=== PATIENT | male | born 1955 | race Caucasian/White ===

== ENCOUNTER → 2021-09-07 | Outpatient (CLI) | payer MEDICARE, BC ==
--- NOTE | 2021-09-07 10:12 | XR ---
EXAMINATION TYPE: XR chest 2V DATE OF EXAM: 09/07/2021 9:40 AM COMPARISON:None TECHNIQUE: XR chest 2V Frontal and lateral views of the chest. CLINICAL INDICATION:Male, 66 years old with history of Z18.10; retained metal fragments, FINDINGS: Lungs/Pleura: There is no evidence of pleural effusion, focal consolidation, or pneumothorax. Pulmonary vascularity: Unremarkable. Heart/mediastinum: Cardiomediastinal silhouette is unremarkable. Musculoskeletal: No acute osseous pathology. Midline sternotomy wires are noted and stable. Other: No radiopaque foreign bodies. IMPRESSION: No acute cardiopulmonary disease/process.
== END | disposition home or self-care (01) ==
LOC: RADXRMAIN 09:18
PROVIDERS: ATTEND Orthopaedic Surgery Hand Surgery
DX: Z18.10 Retained metal fragments, unspecified (principal)
CPT/HCPCS: 71046

== ENCOUNTER → 2021-11-07 | Outpatient (CLI) | payer MEDICARE, BC ==
[2021-11-07 17:03] LABS: Partial Thromboplastin Time 24.4 sec (22.0-30.0); Prothrombin Time 10.4 sec (9.0-12.0)
[2021-11-07 22:37] LABS: HGB 14.8 g/dL (13.0-17.0); MCHC 32.2 g/dL (32.0-37.0); MCV 90.2 fL (80.0-97.0); Mean Platelet Volume 11.6 fL (9.5-12.2); NRBC Per 100 WBC 0 /100 WBCS (0.0-0.0); Platelet Count 177 X 10*3/uL (140-440); WBC 7.17 X 10*3/uL (4.50-10.00)
[2021-11-07 22:56] LABS: Appearance,Urine Clear (Clear); Bilirubin,Urine Negative (Negative); Blood,Urine Negative (Negative); Color,Urine Yellow (Yellow); Ketones,Urine Negative (Negative); Nitrite,Urine Negative (Negative); Specific Gravity,Urine 1.019 (1.001-1.030); Urobilinogen,Urine 0.2 (0.2,1.0)
[2021-11-07 23:07] LABS: Albumin 4.7 g/dL (3.8-4.9); Albumin/Globulin Ratio 1.94 (1.60-3.17); Anion Gap 11.7 mmol/L (10.00-18.00); BUN/Creat Ratio 15.46 Ratio (12.00-20.00); Blood Urea Nitrogen 16.7 mg/dL (9.0-27.0); Carbon Dioxide 24.8 mmol/L (20.0-27.5); Globulin 2.4 g/dL (1.6-3.3); Non-African American GFR(CKD) 71.7 (60.0-200.0); Potassium 4.5 mmol/L (3.5-5.5); Total Bilirubin 0.5 mg/dL (0.30-1.20); Total Protein 7.1 g/dL (6.2-8.2)
== END | disposition home or self-care (01) ==
LOC: LABPAT 15:19
PROVIDERS: ATTEND Orthopaedic Surgery
DX: Z01.812 Encounter for preprocedural laboratory examination (principal); M16.12 Unilateral primary osteoarthritis, left hip
CPT/HCPCS: 36415; 80053; 81003; 85027; 85610; 85730; 87070

== ENCOUNTER 2021-11-19 12:22 | Day surgery (SDC) | payer MEDICARE, BC ==
[2021-11-15 14:20] VITALS: BMI 36.6
[~2021-11-19 12:22] MED LIST: ACETAMINOPHEN TAB 500 MG TAB PO PRN; GABAPENTIN 300 MG CAP PO PRN; HYDROcodone/APAP 7.5-325MG 1 EACH TAB PO PRN; HYDROmorphone 0.2 MG/1 ML SYRINGE IVP PRN; HYDROmorphone 0.5 MG/0.5 ML SYRINGE IVP PRN; LIDOCAINE 1% (10MG/ML) FOR IV START INTRADERMA PRN; MAGNESIUM HYDROXIDE 2,400 MG/10 ML CUP PO PRN; NALOXONE 0.4 MG/ML 1 ML VIAL IV PRN; ONDANSETRON 4 MG/2 ML VIAL IVP ONE; ONDANSETRON 4 MG/2 ML VIAL IVP PRN; ceFAZolin 3 GM in SODIUM CHLORIDE 0.9% 100 ML IVPB PRN
[2021-11-19 13:04] LABS: Glucose,Whole Blood 99 mg/dL (75-99)
[2021-11-19] MEDS: LACTATED RINGERS 1,000 ML IV SCH (13:15)
[2021-11-19] MEDS ORDERED: MELOXICAM 7.5 MG TAB PO ONE (13:39)
[2021-11-19] MEDS ORDERED: ROPIVACAINE 5 MG/ML 30 ML VIAL MISCELLANE ONE ×2 (14:05→15:34)
[2021-11-19] MEDS ORDERED: MIDAZOLAM 2 MG/2 ML VIAL ONE (14:15)
[2021-11-19] MEDS ORDERED: ceFAZolin 1,000 MG in SODIUM CHLORIDE 0.9% 1,000 ML IRRIGATION ONE (14:15)
[2021-11-19] MEDS ORDERED: fentaNYL (PF) 50 MCG/ML 2 ML AMP ONE (14:15)
[2021-11-19] MEDS ORDERED: TRANEXAMIC ACID IN NACL,ISO-OS 1,000 MG/100 ML BAG ONE (14:15)
[2021-11-19] MEDS ORDERED: PROPOFOL 10 MG/ML 20 ML VIAL IV ONE (14:15)
[2021-11-19] MEDS ORDERED: LACTATED RINGERS 1,000 ML IV ONE (15:40)
--- NOTE | 2021-11-19 15:43 | P.OP ---
Date of Procedure: 11/19/21 Preoperative Diagnosis: Severe osteoarthritis left hip Postoperative Diagnosis: Severe osteoarthritis left hip Procedure(s) Performed: Left total hip arthroplasty with a direct anterior approach Implants: [employer] Polarstem standard size 8 [employer] R3, 3 hole hemispherical acetabular shell, 56 mm [employer] Reflection 6.5 mm cancellus screw, 20 mm, 25 mm [employer] R3, XLPE 20 acetabular liner [employer] Oxinium femoral head 36 m, +4 All components were press-fit. The articulation is Oxinium on polyethylene. Anesthesia: spinal Surgeon: Armani Paz Aerodynamics Teacher #1: Mignon Dodd Estimated Blood Loss (ml): 250 Pathology: other (Femoral head) Condition: stable Disposition: PACU Indications for Procedure: After failure of conservative treatment we discussed the surgical and nonsurgi catrachita treatment options at length. Patient wishes to proceed with a total hip arthroplasty with a direct anterior approach. Complications specific to this procedure were discussed at length, including but not limited to infection, leg length discrepancy, dislocation, nerve injury, and fracture. Covid-19 was also discussed at length with the patient, and they are aware of the current policies and procedures. The patient was given the option of delaying surgery, but they elect to proceed knowing these risks. Patient is aware of all these complications and informed consent was obtained Operative Findings: The operative findings are consistent with severe osteoarthritis the left hip Description of Procedure: Patient was seen and evaluated in the preoperative area and the consent was reviewed. The operative site was marked with a skin marker. The patient was then brought to the operating room and given preoperative antibiotics i ntravenously. 1 g of Tranexamic acid was also given intravenously. A spinal anesthetic was administered by the anesthesia department. The patient was then placed on the [place] table with the bony prominences well-padded. The hip area was then prepped with a ChloraPrep solution and draped in the usual sterile fashion. A universal timeout was then performed, which confirmed the patient's name, s urgical site, ALLERGIES, and procedure being performed on the consent. Next the incision site was located at 1 cm distal and 2 cm lateral to the anterior superior iliac spine. The skin and subcutaneous tissues were sharply incised. Incision was carefully dissected down to the fascia overlying the tensor fascia renée muscle. This fascia was then incised in line with the incision. Care was taken to stay laterally in order to avoid injuring the lateral femoral cutaneous nerve. Next, using blunt finger dissection, the tensor fascia renée muscle was dissected off its investing fascia. The muscle was then carefully retracted laterally with a cobra retractor over the lateral neck of the femur. Next, the circumflex vessels were identified and cauterized using the AquaMantis device. The anterior hip capsule was then exposed. The capsule was then opened and an inverted T fashion. Cobra retractors were then placed intracapsularly. The retractors were maintained intracapsular throughout the procedure. The proximal femur was then visualized. Fluoroscopic x-rays were then taken in order to evaluate the preoperative leg lengths. A small amount of traction was placed on the leg. The femoral neck was then osteotomized at the appropriate level above the lesser trochanter. A small wedge of bone was then removed from the remaining femoral head. Next, using a corkscrew the femoral head was removed from the acetabulum. On gross visual inspection, the femoral head had complete loss of articular cartilage and multiple periarticular osteophytes. The femoral head was then measured. Attention was then turned to the acetabulum. The acetabulum was exposed and any remaining labrum was excised. Sequential reaming of the acetabulum was performed using fluoroscopic guidance until there was a good bed of bleeding cancellus bone. When the appropriate size was reached, a trial was then placed. The position and fit of the trial was checked with fluoroscopy. The trial was then removed. Then, using fluoroscopic guidance, the final implant was impacted at 20 of anteversion and 40 of abduction, and fully seated in the acetabulum. 2 screws were then placed in the acetabulum. Again fluoroscopy was used to check position of the screws. Next, the liner was then impacted, with a 20 elevated liner located in the anterior superior quadrant. Component locking was confirmed. Attention was then directed to the femur. With the aid of the [place] table, the femur was externally rotated to approximately 130, extended, and adducted under the opposite leg. A side hook was then placed under the proximal femur, and the side hook elevator was used to elevate the proximal femur while releasing the capsule. Retractors were then placed. A capsular release was performed, as wel l as a release of the conjoined tendon, which afforded excellent visualization of the proximal femur. Next, a box osteotome was used to lateralize the proximal femur. A smoking tobacco packing machine hand was then used to locate the femoral canal. Sequential broaching was then performed with appropriate size which afforded excellent fixation in the proximal femur. A trial was then placed with appropriate head and neck, and the hip was gently reduced with the aid of the [place] table. Fluoroscopy was then used to check position of the components, as well as to ensure equal leg lengths. The hip was then gently dislocated and the trials were then removed. Final implants were then impacted and the hip was again reduced. Final fluoroscopic x-rays confirmed that the components were in anatomic position, as well as equal leg lengths. The hip was also taken through range of motion, and found to be stable. The hip was then copiously irrigated with antibiotic solution with pulsatile lavage. The hip was then irrigated with Irrisept solution. The soft tissues were then injected with a ropivacaine solution. A second dose of 1 g of Tranexamic acid was also given intravenously. The fascia was then closed with 2-0 strata fix suture. The subcutaneous tissue was closed with 3-0 Vicryl. The subcuticular tissue was closed with 3-0 strata fix suture. The skin was then closed with Exofin skin glue. After the glue and dried, and Optifoam silver impregnated dressing was applied. The patient was then transferred to the recovery room in stable condition. The retail assistant store manager TC Ferreira was required due to the complexity of surgery, and the need for skilled regional vice president surgical sales for positioning, draping, exposure, retraction, and closure of the wound.
--- NOTE | 2021-11-19 16:12 | FL ---
EXAMINATION TYPE: FL guidance operating room, XR Hip Limited LT DATE OF EXAM: 11/19/2021 CLINICAL HISTORY: Left hip pain and osteoarthritis. TECHNIQUE: Fluoroscopy. Intraoperative limited views left hip. COMPARISON: None. FINDINGS: Fluoroscopic guidance was provided during left hip replacement procedure performed by Dr. Paz. A total of 26 seconds of fluoroscopic time was utilized during the procedure and 3 spot im ages was acquired. Intraoperative images acquired show placement of metallic hardware from total left hip arthroplasty s atisfactory in position on frontal projection. IMPRESSION: As Above.
--- NOTE | 2021-11-19 16:21 | XR ---
EXAMINATION TYPE: XR Hip Limited LT DATE OF EXAM: 11/19/2021 CLINICAL HISTORY: Left hip pain and osteoarthritis. TECHNIQUE: Single AP portable view of left hip is obtained immediately postoperatively. COMPARISON: None. FINDINGS: Metallic hardware from left hip arthroplasty is seen and appears satisfactory in alignment and position. There is evidence of recent surgery with subcutaneous gas and soft tissue swelling not ed laterally. IMPRESSION: Metallic hardware from left hip arthroplasty is satisfactory in position.
[2021-11-19] MEDS: TRANEXAMIC ACID IN NACL,ISO-OS 1,000 MG in SALINE 1 100ML.BAG IVPB SCH (17:05)
[2021-11-19] MEDS: INSULIN ASPART (NovoLOG) 100 UNIT/ML VIAL SQ SCH (17:09)
[2021-11-19 17:15] LABS: Glucose,Whole Blood 77 mg/dL (75-99)
[2021-11-19 17:17] VITALS: RESP 18
[2021-11-19 17:37] LABS: Glucose,Whole Blood 71 mg/dL (75-99)
[2021-11-19 17:57] LABS: Glucose,Whole Blood 83 mg/dL (75-99)
--- NOTE | 2021-11-19 18:11 | P.CONS ---
History of Present Illness - Reason for Consult Consult date: 11/19/21 - Chief Complaint Medical managemen - History of Present Illness 66-year-old man with medical history of CAD status post CABG in 2010, hypertension, diabetes, hyperlipidemia presented for elective total hip arthroplasty of the left. Medicine was consulted by orthopedic surgery team for medical management. Patient is doing well postop, only mild amount of pain and chills. His sugars are borderline low, his blood pressure is borderline low. He denies fevers, nausea, vomiting, chest pain, palpitations, syncope, presyncope, cough, dyspnea, abdominal pain, constipation, diarrhea, dysuria, dyschezia, numbness/weakness of extremities. Upon my evaluation, patient is afebrile, 125/67, heart rate 52, 99% on room air. Postoperative hip x-ray shows metallic hardware in satisfactory position. All Systems reviewed and pertinent positives and negatives noted in HPI, all other symptoms are negative Gen: awake, alert HEENT: normocephalic, atraumatic, good hearing acuity, moist mucous membranes Resp: good air exchange, breathing comfortably with no accessory muscle use CVS: good distal perfusion x 4, GI: soft, NTTP, ND : no SPT, no CVAT, boateng catheter Is present MSK: no pitting edema, no clubbing Neuro: non-focal, moving all extremities Psych: cooperative, euthymic mood Labs and imaging as above. Assessment/Plan: CAD HTN HLD DM, type 2 Obesity, class II, BMI 37.0 Plan: -obtain CBC, BMP, Mg tomorrow -Home medications were reviewed and reconciled -continue ASA BID for DVT PPx per primary team -pain control -SSI and ACHS checks -PT/OT consult pending Pt is a Full Code Past Medical History Past Medical History: Coronary Artery Disease (CAD), Diabetes Mellitus, Hyperlipidemia, Hypertension, Osteoarthritis (OA) Additional Past Medical History / Comment(s): "pre diabetic", hx gout, History of Any Multi-Drug Resistant Organisms: None Reported Past Surgical History: Coronary Bypass/CABG, Heart Catheterization, Orthopedic Surgery Additional Past Surgical History / Comment(s): arthroscopy rt knee, reattached tendons rt thrumb, double CABG 2010, Left anterior hip (11/19/21) Past Anesthesia/Blood Transfusion Reactions: Previous Problems w/ Anesthesia Additional Past Anesthesia/Blood Transfusion Reaction / Comm: "takes a while to come out'- "takes more to put me out" Past Psychological History: No Psychological Hx Reported Smoking Status: Never smoker Past Alcohol Use History: Occasional Past Drug Use History: None Reported - Past Family History Mother Family Medical History: No Reported History Medications and Allergies Home Medications Medication Instructions Recorded Confirmed Type Aspirin [Adult Low Dose Aspirin EC] 81 mg PO DAILY 11/15/21 11/19/21 History Fish Oil/Dha/Epa [Fish Oil 1,200 1 each PO DAILY 11/15/21 11/19/21 History mg Fish Oil] Metoprolol Tartrate [Lopressor] 50 mg PO BID 11/15/21 11/19/21 History Rosuvastatin [Crestor] 10 mg PO HS 11/15/21 11/19/21 History Vitamin B(Dose Unknown) 1 tab PO DAILY 11/15/21 11/19/21 History Vitamin D(Dose Unknown) 1 tab PO DAILY 11/15/21 11/19/21 History lisinopriL [Prinivil] 20 mg PO QAM 11/15/21 11/19/21 History metFORMIN HCL [Glucophage] 500 mg PO W/SUPPER 11/15/21 11/19/21 History Aspirin 325 mg PO BID #60 tab 11/18/21 Rx HYDROcodone/APAP 7.5-325MG [[place] 1 - 2 tab PO Q6H PRN #32 tab 11/18/21 Rx 7.5-325] Ondansetron Odt [Zofran Odt] 1 tab PO Q8HR PRN #10 tab 11/18/21 Rx Sennosides [Senokot] 2 tab PO DAILY PRN #60 tablet 11/18/21 Rx Allergies Allergy/AdvReac Type Severity Reaction Status Date / Time ibuprofen Allergy Rash/Hives Verified 11/19/21 12:51 Physical Exam Osteopathic Statement: *. No significant issues noted on an osteopathic structural exam other than those noted in the History and Physical/Consult. Vitals: Vital Signs Temp Pulse Pulse Resp BP Pulse Ox 11/19/21 17:17 97.5 F L 52 L 18 125/67 99 11/19/21 16:28 68 16 103/59 100 11/19/21 16:13 71 16 101/56 100 11/19/21 15:58 97.1 F L 75 16 85/45 96 11/19/21 12:42 96.3 F L 78 18 153/84 97 Intake and Output 11/19/21 11/19/21 11/19/21 06:59 14:59 22:59 Intake Total 1101 300 Output Total 250 Balance 1101 50 Intake: IV 1101 300 Output: Estimated Blood Loss 250 Other: # Voids 0 Weight 130.8 kg 130.8 kg Results Labs: Abnormal Lab Results - Last 24 Hours (Table) 11/19/21 Range/Units 17:35 POC Glucose (mg/dL) 71 L (75-99) mg/dL
[2021-11-19] MEDS: SODIUM CHLORIDE 0.9% 1,000 ML IV SCH (18:16)
[2021-11-19] MEDS: HYDROcodone/APAP 7.5-325MG 1 EACH TAB PO PRN (19:47)
[2021-11-19] MEDS: ATORVASTATIN 20 MG TAB PO SCH ×2 (19:48→22:42)
[2021-11-19] MEDS: ASPIRIN 325 MG TAB PO SCH (19:48)
[2021-11-19] MEDS: METOPROLOL TARTRATE 50 MG TAB PO SCH (19:48)
[2021-11-19 20:35] LABS: Glucose,Whole Blood 148 mg/dL (75-99)
[2021-11-19] MEDS ORDERED: SENNOSIDES-DOCUSATE SODIUM 1 EACH TAB PO SCH (21:00)
[2021-11-19] MEDS: ceFAZolin 3 GM in SODIUM CHLORIDE 0.9% 100 ML IVPB SCH (22:14)
[2021-11-20] MEDS: HYDROcodone/APAP 7.5-325MG 1 EACH TAB PO PRN ×2 (01:32→06:46)
[2021-11-20] MEDS: SODIUM CHLORIDE 0.9% 1,000 ML IV SCH (01:33)
[2021-11-20] MEDS: LACTATED RINGERS 1,000 ML IV SCH (05:17)
[2021-11-20] MEDS: ceFAZolin 3 GM in SODIUM CHLORIDE 0.9% 100 ML IVPB SCH (05:18)
[2021-11-20 06:41] LABS: Glucose,Whole Blood 161 mg/dL (75-99)
[2021-11-20 07:14] VITALS: BP 130/71; PULSE 62; TEMP 98
[2021-11-20] MEDS: METOPROLOL TARTRATE 50 MG TAB PO SCH (08:48)
[2021-11-20] MEDS: INSULIN ASPART (NovoLOG) 100 UNIT/ML VIAL SQ SCH (08:48)
[2021-11-20] MEDS: ASPIRIN 325 MG TAB PO SCH (08:48)
[2021-11-20] MEDS ORDERED: lisinopriL 20 MG TAB PO SCH (09:00)
[2021-11-20] MEDS ORDERED: NON FORMULARY DRUG (Fish Oil/Dha/Epa [Fish Oil 1,200 Mg Fish Oil] 1 EACH Capsule) PO SCH (09:00)
--- NOTE | 2021-11-20 10:25 | P.DS ---
Providers Expected date of discharge: 11/20/21 Attending physician: Armani Paz Consults: 11/19/21 08:50 Consult Physician Routine Consulting Provider: Harman Arreaga Consult Reason/Comments: medical management Do you want consulting provider notified?: Yes Primary care physician: Stated None - Discharge Diagnosis(es) (1) Primary localized osteoarthritis of left hip Current Visit: Yes Status: Acute (2) Status post total replacement of left hip Current Visit: Yes Status: Acute Hospital Course: This is a 66-year-old male with known history of degenerative arthritis of the left hip. The patient presents for evaluation. After discussion and consideration patient elects to proceed with total hip arthroplasty with direct anterior approach. The patient is seen preoperatively by primary care physician and cleared for surgery. Patient is admitted to [facility] on 11/19/2021 for total hip arthroplasty with direct anterior approach. The procedure is performed without complication or sequelae. The patient is doing well postoperatively. Labs and vital signs are stable on day of discharge. On day of discharge patient's hip incision is healing well. There is minimal erythema. There is no drainage noted at this time. There is minimal soft tissue swelling to the hip and thigh. Patient has full foot and ankle motion without difficulty or pain. Neurovascular status to the lower extremity is intact. Patient is discharged to home in good condition. Please see med rec for accurate list of home medications. Patient Condition at Discharge: Good Plan - Discharge Summary Discharge Rx Participant: No New Discharge Prescriptions: New Aspirin 325 mg PO BID #60 tab Sennosides [Senokot] 2 tab PO DAILY PRN #60 tablet PRN Reason: Constipation Ondansetron Odt [Zofran Odt] 1 tab PO Q8HR PRN #10 tab PRN Reason: Nausea HYDROcodone/APAP 7.5-325MG [[place] 7.5-325] 1 - 2 tab PO Q6H PRN #32 tab PRN Reason: Pain No Action metFORMIN HCL [Glucophage] 500 mg PO W/SUPPER Fish Oil/Dha/Epa [Fish Oil 1,200 mg Fish Oil] 1 each PO DAILY Vitamin D(Dose Unknown) 1 tab PO DAILY Rosuvastatin [Crestor] 10 mg PO HS Metoprolol Tartrate [Lopressor] 50 mg PO BID lisinopriL [Prinivil] 20 mg PO QAM Aspirin [Adult Low Dose Aspirin EC] 81 mg PO DAILY Vitamin B(Dose Unknown) 1 tab PO DAILY Discharge Medication List Aspirin [Adult Low Dose Aspirin EC] 81 mg PO DAILY 11/15/21 [History] Fish Oil/Dha/Epa [Fish Oil 1,200 mg Fish Oil] 1 each PO DAILY 11/15/21 [History] Metoprolol Tartrate [Lopressor] 50 mg PO BID 11/15/21 [History] Rosuvastatin [Crestor] 10 mg PO HS 11/15/21 [History] Vitamin B(Dose Unknown) 1 tab PO DAILY 11/15/21 [History] Vitamin D(Dose Unknown) 1 tab PO DAILY 11/15/21 [History] lisinopriL [Prinivil] 20 mg PO QAM 11/15/21 [History] metFORMIN HCL [Glucophage] 500 mg PO W/SUPPER 11/15/21 [History] Aspirin 325 mg PO BID #60 tab 11/18/21 [Rx] HYDROcodone/APAP 7.5-325MG [[place] 7.5-325] 1 - 2 tab PO Q6H PRN #32 tab 11/18/21 [Rx] Ondansetron Odt [Zofran Odt] 1 tab PO Q8HR PRN #10 tab 11/18/21 [Rx] Sennosides [Senokot] 2 tab PO DAILY PRN #60 tablet 11/18/21 [Rx] Follow up Appointment(s)/Referral(s): Armani Paz DO [Doctor of Osteopathic Medicine] - 2 Weeks Activity/Diet/Wound Care/Special Instructions: Weightbearing as tolerated with walker. Leave dressing intact. Dressing may be removed by home care nurse or by patient in 7 days. Then change dressing twice daily until follow up. May shower with initial dressing intact and after removal. If dressing become saturated, please remove. Please take aspirin 325mg twice daily for 30 days to prevent blood clots. Recommend use of compression stockings daily until follow up to help prevent swelling and blood clots. May remove at night before sleeping. Please follow-up with [facility] in 2 weeks and call with any questions or concerns, . Discharge Disposition: HOME WITH HOME HEALTH SERVICES
[2021-11-20 10:50] LABS: Basophils # (A) 0.02 X 10*3/uL (0.00-0.10); Basophils % (A) 0.2 %; Eosinophils # (A) 0 X 10*3/uL (0.04-0.35); Eosinophils % (A) 0 %; HCT 38.7 % (39.6-50.0); HGB 12.4 g/dL (13.0-17.0); Immature Grans, Automated 0.2 %; Lymphocytes # (A) 1.06 X 10*3/uL (0.90-5.00); Lymphocytes % (A) 12.4 %; MCH 29.7 pg (27.0-32.0); MCV 92.8 fL (80.0-97.0); Mean Platelet Volume 11.6 fL (9.5-12.2); Monocytes # (A) 0.96 X 10*3/uL (0.20-1.00); Monocytes % (A) 11.3 %; NRBC Per 100 WBC 0 /100 WBCS (0.0-0.0); Neutrophils # (A) 6.47 X 10*3/uL (1.80-7.70); Neutrophils % (A) 75.9 %; Platelet Count 137 X 10*3/uL (140-440); RBC 4.17 X 10*6/uL (4.40-5.60); RDW 14.1 % (11.5-14.5); WBC 8.53 X 10*3/uL (4.50-10.00)
[2021-11-20 11:00] LABS: African American GFR (CKD) 81.2 (60.0-200.0); Anion Gap 10.7 mmol/L (10.00-18.00); BUN/Creat Ratio 14.91 Ratio (12.00-20.00); Blood Urea Nitrogen 16.4 mg/dL (9.0-27.0); Calcium 8.6 mg/dL (8.7-10.3); Carbon Dioxide 24.3 mmol/L (20.0-27.5); Non-African American GFR(CKD) 70.1 (60.0-200.0); Potassium 4.2 mmol/L (3.5-5.5)
[2021-11-20 11:10] LABS: Glucose,Whole Blood 153 mg/dL (75-99)
--- NOTE | 2021-11-20 14:07 | P.PN ---
Subjective Progress Note Date: 11/20/21 No new complaints today, medically stable for dc. Gen: awake, alert HEENT: normocephalic, atraumatic, good hearing acuity, moist mucous membranes Resp: good air exchange, breathing comfortably with no accessory muscle use CVS: good distal perfusion x 4, GI: soft, NTTP, ND : no SPT, no CVAT, boateng catheter Is present MSK: no pitting edema, no clubbing Neuro: non-focal, moving all extremities Psych: cooperative, euthymic mood Labs and imaging as above. Assessment/Plan: CAD HTN HLD DM, type 2 Obesity, class II, BMI 37.0 Plan: -obtain CBC, BMP, Mg tomorrow -Home medications were reviewed and reconciled -continue ASA BID for DVT PPx per primary team -pain control -SSI and ACHS checks -PT/OT consult pending Pt is a Full Code Objective - Vital Signs Vital signs: Vital Signs Temp 98 F 11/20/21 06:50 Pulse 62 11/20/21 07:00 Resp 18 11/20/21 07:00 BP 130/71 11/20/21 06:50 Pulse Ox 100 11/20/21 06:50 Intake & Output 11/19/21 11/20/21 11/20/21 18:59 06:59 18:59 Intake Total 1401 Output Total 250 Balance 1151 Weight 130.8 kg Intake: IV 1401 Output: Estimated Blood Loss 250 Other: Voiding Method Toilet Toilet # Voids 0 3 - Labs CBC & Chem 7: 11/20/21 04:44 11/20/21 04:44 Labs: Abnormal Lab Results - Last 24 Hours (Table) 11/19/21 11/19/21 11/20/21 Range/Units 17:35 20:18 04:44 RBC (4.40-5.60) X 10*6/uL Hgb (13.0-17.0) g/dL Hct (39.6-50.0) % Plt Count (140-440) X 10*3/uL Eosinophils # (0.04-0.35) X 10*3/uL Glucose 141 H (70-110) mg/dL POC Glucose (mg/dL) 71 L 148 H (75-99) mg/dL Calcium 8.6 L (8.7-10.3) mg/dL 11/20/21 11/20/21 11/20/21 Range/Units 04:44 06:39 11:07 RBC 4.17 L (4.40-5.60) X 10*6/uL Hgb 12.4 L (13.0-17.0) g/dL Hct 38.7 L (39.6-50.0) % Plt Count 137 L (140-440) X 10*3/uL Eosinophils # 0 L (0.04-0.35) X 10*3/uL Glucose (70-110) mg/dL POC Glucose (mg/dL) 161 H 153 H (75-99) mg/dL Calcium (8.7-10.3) mg/dL
== END 2021-11-20 13:27 | disposition home health service (06) ==
LOC: OR 12:22 → 4SSUR 15:51 → OR 11-20 13:27
PROVIDERS: ATTEND Orthopaedic Surgery
DX: M16.12 Unilateral primary osteoarthritis, left hip (principal); I25.10 Atherosclerotic heart disease of native coronary artery without angina pectoris; I10 Essential (primary) hypertension; E78.5 Hyperlipidemia, unspecified; E11.9 Type 2 diabetes mellitus without complications; E66.9 Obesity, unspecified; M10.9 Gout, unspecified; Z95.1 Presence of aortocoronary bypass graft; Z68.37 Body mass index [BMI] 37.0-37.9, adult; Z79.899 Other long term (current) drug therapy; Z79.82 Long term (current) use of aspirin; Z79.84 Long term (current) use of oral hypoglycemic drugs; Z88.8 Allergy status to other drugs, medicaments and biological substances; Z98.890 Other specified postprocedural states; Z97.3 Presence of spectacles and contact lenses; Z82.49 Family history of ischemic heart disease and other diseases of the circulatory system
CPT/HCPCS: 97161; 97535; 97165; 80048; 83735; 85025; 88300; 73501; 27130; C1776; J2250; J0690 ×3; J2405; J3010; J2795; J2704; 86850; 86900; 86901

== ENCOUNTER → 2024-11-14 | Outpatient (CLI) | payer MEDICARE ==
[2024-11-14 09:19] LABS: Partial Thromboplastin Time 23.1 sec (22.0-30.0); Prothrombin Time 10.7 sec (10.0-12.5)
[2024-11-14 15:38] LABS: HCT 43.8 % (39.6-50.0); HGB 14.2 g/dL (13.0-17.0); MCH 29.1 pg (27.0-32.0); MCHC 32.4 g/dL (32.0-37.0); MCV 89.8 FL (80.0-97.0); Mean Platelet Volume 11.5 FL (9.5-12.2); NRBC Per 100 WBC 0 X 10*3/uL (0.00-0.01); Platelet Count 151 X 10*3/uL (140-440); RBC 4.88 X 10*6/uL (4.40-5.60); RDW 13.6 % (11.5-14.5); WBC 5.91 X 10*3/uL (4.50-10.00)
[2024-11-14 15:54] LABS: BUN/Creat Ratio 20.42 Ratio (12.00-20.00); Blood Urea Nitrogen 24.5 mg/dL (9.0-27.0); Chloride 106 mmol/L (96-109); Glucose 188 mg/dL (70-110); Sodium 140 mmol/L (135-145)
[2024-11-14 15:55] LABS: ALT 35 U/L (10-49); AST 34 U/L (14-35); Albumin 4.2 g/dL (3.8-4.9); Albumin/Globulin Ratio 1.83 Ratio (1.60-3.17); Alkaline Phosphatase 51 U/L (41-126); Calcium 9.6 mg/dL (8.7-10.3); Carbon Dioxide 25.1 mmol/L (21.6-31.8); Globulin 2.3 g/dL (1.6-3.3); Total Bilirubin 0.4 mg/dL (0.3-1.2); Total Protein 6.5 g/dL (6.2-8.2)
== END | disposition home or self-care (01) ==
LOC: LABPAT 08:12
PROVIDERS: ATTEND Orthopaedic Surgery
DX: Z01.812 Encounter for preprocedural laboratory examination (principal); Z22.322 Carrier or suspected carrier of Methicillin resistant Staphylococcus aureus; M16.11 Unilateral primary osteoarthritis, right hip
CPT/HCPCS: 80053; 85027; 85610; 85730; 86850; 86900; 86901; 87070

== ENCOUNTER 2024-11-22 05:47 | Day surgery (SDC) | payer BC, MEDICARE ==
[~2024-11-22 05:47] MED LIST changes: -ACETAMINOPHEN TAB 500 MG TAB PO PRN; -HYDROcodone/APAP 7.5-325MG 1 EACH TAB PO PRN; -HYDROmorphone 0.2 MG/1 ML SYRINGE IVP PRN; -HYDROmorphone 0.5 MG/0.5 ML SYRINGE IVP PRN; -LIDOCAINE 1% (10MG/ML) FOR IV START INTRADERMA PRN; -MAGNESIUM HYDROXIDE 2,400 MG/10 ML CUP PO PRN; +MELOXICAM 7.5 MG TAB PO PRN; -NALOXONE 0.4 MG/ML 1 ML VIAL IV PRN; -ONDANSETRON 4 MG/2 ML VIAL IVP ONE; -ONDANSETRON 4 MG/2 ML VIAL IVP PRN; +TRANEXAMIC 1,000 MG/100ML-NACL 1,000 MG in SALINE 1 100ML.BAG IVPB PRN; -ceFAZolin 3 GM in SODIUM CHLORIDE 0.9% 100 ML IVPB PRN
[2024-11-22] MEDS ORDERED: LIDOCAINE 1% (10MG/ML) FOR IV START INTRADERMA PRN (06:06)
[2024-11-22] MEDS: ACETAMINOPHEN TAB 500 MG TAB PO PRN (06:24)
[2024-11-22 06:51] LABS: Glucose,Whole Blood 156 mg/dL (70-110)
[2024-11-22] MEDS: ONDANSETRON 4 MG/2 ML VIAL IVP ONE (06:55)
[2024-11-22] MEDS: DEXAMETHASONE SOD PHOSPHATE 4 MG/ML 1 ML VIAL IV ONE (06:55)
[2024-11-22] MEDS: LACTATED RINGERS 1,000 ML IV SCH (06:55)
[2024-11-22] MEDS ORDERED: fentaNYL (PF) 50 MCG/ML 2 ML AMP IVP PRN (07:00)
[2024-11-22] MEDS: MIDAZOLAM 2 MG/2 ML VIAL IV PRN (07:04)
[2024-11-22] MEDS: IV FLUID CONTINUATION 1,000 ML IV ONE (07:16)
[2024-11-22] MEDS ORDERED: KETAMINE HCL IN 0.9 % NACL 50 MG/5 ML SYRINGE ONE (07:29)
[2024-11-22] MEDS ORDERED: DEXAMETHASONE SOD PHOSPHATE 4 MG/ML 1 ML VIAL ONE (07:29)
[2024-11-22] MEDS ORDERED: GLYCOPYRROLATE 0.2 MG/ML 2 ML VIAL ONE (07:29)
[2024-11-22] MEDS ORDERED: HYDROmorphone (PF) 1 MG/ML ONE (07:29)
[2024-11-22] MEDS ORDERED: PROPOFOL 10 MG/ML 20 ML VIAL IV ONE (07:29)
[2024-11-22] MEDS ORDERED: fentaNYL (PF) 50 MCG/ML 2 ML AMP ONE (07:29)
[2024-11-22] MEDS ORDERED: MIDAZOLAM 2 MG/2 ML VIAL ONE (07:29)
[2024-11-22] MEDS ORDERED: LIDOCAINE 1% INJ 10MG/ML (20 ML MDV) ONE (07:29)
[2024-11-22] MEDS ORDERED: ROCURONIUM 10 MG/ML (5 ML VIAL) IV ONE (07:29)
[2024-11-22] MEDS ORDERED: TRANEXAMIC 1,000 MG/100ML-NACL PREMIX BAG ONE (07:29)
[2024-11-22] MEDS ORDERED: NEOSTIGMINE 1 MG/ML 10 ML VIAL ONE (07:29)
[2024-11-22] MEDS ORDERED: ROPIVACAINE 5 MG/ML 30 ML VIAL ONE (07:29)
[2024-11-22] MEDS ORDERED: SUCCINYLCHOLINE CHLORIDE 200 MG/10 ML VIAL IV ONE (07:29)
[2024-11-22] MEDS: ceFAZolin 3 GM in SODIUM CHLORIDE 0.9% 100 ML IVPB PRN (07:34)
[2024-11-22] MEDS: ceFAZolin 1,000 MG in SODIUM CHLORIDE 0.9% 1,000 ML IRRIGATION ONE (07:34)
[2024-11-22] MEDS: ROPIVACAINE 5 MG/ML 30 ML VIAL MISCELLANE ONE ×2 (07:36→09:03)
--- NOTE | 2024-11-22 09:06 | P.ANPRN ---
Procedure Note - Anesthesia - Nerve Block Performed Right Chris Single Date of Procedure: 11/22/24 Procedure Start Time: 07:03 Procedure Stop Time: 07:11 Indication: Acute Post-Operative Pain, Requested by Surgeon Sedation Type: Sedate with meaningful contact maintained Preparation: Sterile Prep Position: Supine Needle Gauge: 21 Ultrasound used to visualize needle placement: Yes Ultrasound used to observe medication spread: Yes Injectate: 0.5% Ropivacaine (see comment for volume) (25 mls with 4 mg of Decadron) Blood Aspirated: No Pain Paresthesia on Injection Noted: No Resistance on Injection: Normal Image Stored and Saved: Yes Events: Uneventful and Well Tolerated
[2024-11-22] MEDS: LACTATED RINGERS 1,000 ML IV ONE (09:08)
--- NOTE | 2024-11-22 09:13 | P.OP ---
Date of Procedure: 11/22/24 Preoperative Diagnosis: Severe osteoarthritis right hip Postoperative Diagnosis: Severe osteoarthritis, right hip Procedure(s) Performed: Right total hip arthroplasty with a direct anterior approach Implants: [employer] Polarstem standard size8 with a collar [employer] R3, 3 hole hemispherical acetabular shell, 56 mm [employer] Reflection 6.5 mm cancellus screws, 20 mm, 25 mm [employer] R3, XLPE 20 acetabular liner [employer] Oxinium femoral head 36 mm, +0 All components were press-fit. The articulation is Oxinium on polyethylene. Anesthesia: spinal Surgeon: Armani Paz Sling Operator #1: Nancy Nj Estimated Blood Loss (ml): 550 Pathology: none sent Condition: stable Disposition: PACU Indications for Procedure: After failure of conservative treatment we discussed the surgical and nonsurgical treatment options at length. Patient wishes to proceed with a total hip arthroplasty with a direct anterior approach. Complications specific to this procedure were discussed at length, including but not limited to infection, leg length discrepancy, dislocation, nerve injury, and fracture. Covid-19 was also discussed at length with the patient, and they are aware of the current policies and procedures. The patient was given the option of delaying surgery, but they elect to proceed knowing these risks. Patient is aware of all these complications and informed consent was obtained Operative Findings: The operative findings are consistent with severe osteoarthritis of the right hip Description of Procedure: The patient was seen and evaluated in the preoperative area and the consent was reviewed. The operative site was marked with a skin marker. The patient verified the procedure and operative site. A JASMEET block was placed by anesthesia in the preoperative area. The patient was then brought to the operating room and given preoperative antibiotics intravenously. 1 g of Tranexamic acid was also given intravenously. A spinal anesthetic was administered by the anesthesia department. The patient was then placed on the [place] table with the bony prominences well-padded. The hip area was then prepped with a ChloraPrep solution and draped in the usual sterile fashion. A universal timeout was then performed, which confirmed the patient's name, surgical site, ALLERGIES, and procedure being performed on the consent. Next the incision site was located at 1 cm distal and 4 cm lateral to the anterior superior iliac spine. The skin and subcutaneous tissues were sharply incised. Incision was carefully dissected down to the fascia overlying the tensor fascia renée muscle. This fascia was then incised in line with the muscle fibers. Care was taken to stay laterally in order to avoid injuring the lateral femoral cutaneous nerve. Next, using blunt finger dissection, the tensor fascia renée muscle was dissected off its investing fascia. The muscle was then carefully retracted laterally with a cobra retractor over the lateral neck of the femur. Next, the circumflex vessels were identified and cauterized using the Aquamantis device. The anterior hip capsule was then exposed. The capsule was then opened and an inverted T fashion. The retractors were then placed intracapsularly. The retractors were maintained intracapsular throughout the procedure. The proximal femur was then visualized. Fluoroscopic x-rays were then taken in order to evaluate the preoperative leg lengths. A small amount of traction was placed on the leg. The femoral neck was then osteotomized at the appropriate level above the lesser trochanter. A small wedge of bone was then removed from the remaining femoral head. Next, using a corkscrew the femoral head was removed from the acetabulum. On gross visual inspection, the femoral head had complete loss of articular cartilage and multiple periarticular osteophytes. The femoral head was then measured. Attention was then turned to the acetabulum. The acetabulum was exposed and any remaining labrum was excised. Sequential reaming of the acetabulum was performed using fluoroscopic guidance until there was a good bed of bleeding cancellus bone. When the appropriate size was reached, a trial was then placed. The position and fit of the trial was checked with fluoroscopy. The trial was then removed. Then, using fluoroscopic guidance, the final implant was impacted at 20 of anteversion and 40 of abduction, and fully seated in the acetabulum. 2 screws were then placed in the acetabulum. Again fluoroscopy was used to check position of the screws. Next, the liner was then impacted, with a 20 elevated liner located in the anterior superior quadrant. Component locking was confirmed. Attention was then directed to the femur. With the aid of the [place] table, the femur was externally rotated to approximately 130, extended, and adducted under the opposite leg. A side hook was then placed under the proximal femur, and the side hook elevator was used to elevate the proximal femur while releasing the capsule. Retractors were then placed. A capsular release was performed, as well as a release of the conjoined tendon, which afforded excellent visualization of the proximal femur. Next, a box osteotome was used to lateralize the proximal femur. A extra hand was then used to locate the femoral canal. Sequential broaching was then performed with appropriate size which afforded excellent fixation in the proximal femur. A trial was then placed with appropriate head and neck, and the hip was gently reduced with the aid of the [place] table. Fluoroscopy was then used to check position of the components, as well as to evaluate the leg lengths and offset. The leg lengths and offset were measured as closely as possible to ensure stability of the hip. The hip was then gently dislocated and the trials were then removed. Final implants were then impacted and the hip was again reduced. Final fluoroscopic x-rays confirmed that the components were in anatomic position. The leg lengths and offset were measured and were found to coincide with the trial measurements. The hip was also taken through range of motion, and found to be stable. The hip was then copiously irrigated with antibiotic solution with pulsatile lavage. The hip was then irrigated with Irrisept solution. The soft tissues were then injected with a ropivacaine solution. A second dose of 1 g of Tranexamic acid was also given intravenously. The fascia was then closed with 2-0 strata fix suture. The subcutaneous tissue was closed with 3-0 Vicryl. The subcuticular tissue was closed with 3-0 moncryl suture. The skin was then closed with Exofin skin glue. After the glue and dried, and Optifoam silver impregnated dressing was applied. The patient was then transferred to the recovery room in stable condition. The mobile sales assistant Nancy Nj NP was required due to the complexity of surgery, and the need for skilled instructor adjunct surgical technician for positioning, draping, exposure, retraction, and closure of the wound.
[2024-11-22] MEDS ORDERED: HYDROmorphone 2 MG/ML 1 ML SYRINGE IVP PRN (09:40)
[2024-11-22] MEDS ORDERED: MAGNESIUM HYDROXIDE 2,400 MG/30 ML CUP PO PRN (09:40)
[2024-11-22] MEDS ORDERED: HYDROmorphone 0.5 MG/0.5 ML SYRINGE IVP PRN ×2 (09:40)
[2024-11-22] MEDS ORDERED: NALOXONE 0.4 MG/ML 1 ML VIAL IV PRN (09:40)
[2024-11-22] MEDS ORDERED: HYDROcodone/APAP 7.5-325MG 1 EACH TAB PO PRN ×2 (09:40→09:44)
[2024-11-22 09:48] LABS: Glucose,Whole Blood 199 mg/dL (70-110)
--- NOTE | 2024-11-22 09:50 | XR ---
EXAMINATION TYPE: XR Hip Limited RT, FL guidance operating room DATE OF EXAM: 11/22/2024 9:20 AM COMPARISON: None CLINICAL INDICATION: Male, 69 years old with history of Rt Hip-Ant; PHH, pain FLUOROSCOPY RT anterior hip with Heithoff 26.4 sec fluoro time 2.2721 DAP LC 3 images are submitted. [facility], Workstation: [facility], 11/22/2024 9:47 AM
[2024-11-22] MEDS: HYDROmorphone 0.5 MG/0.5 ML SYRINGE IVP PRN (10:01)
--- NOTE | 2024-11-22 10:09 | XR ---
EXAMINATION TYPE: XR Hip Limited 1 view RT DATE OF EXAM: 11/22/2024 10:02 AM COMPARISON: None CLINICAL INDICATION: Male, 69 years old with history of post op; PHH, pain, assess surgical complicat ion and alignment FINDINGS: Image shows placement of right total hip arthroplasty. Both acetabular cup and femoral stem components of the prosthesis are well seated without periprosthetic fracture. Alignment grossly allyn omic. Soft tissue air related to recent operation. IMPRESSION: Uncomplicated postoperative appearance right total hip arthroplasty. [facility], , 11/22/2024 10:07 AM
[2024-11-22] MEDS: INSULIN LISPRO (HumaLOG) 100 UNIT/ML 10 mL VL SQ ONE (10:24)
[2024-11-22] MEDS: hydrALAZINE HCL 20 MG/ML 1 ML VIAL IVP STA (10:46)
[2024-11-22] MEDS: ceFAZolin 3 GM in SODIUM CHLORIDE 0.9% 100 ML IVPB SCH (16:01)
[2024-11-22 17:09] LABS: Glucose,Whole Blood 241 mg/dL (70-110)
[2024-11-22] MEDS ORDERED: HYDROmorphone 1 MG/ML 1 ML SYRINGE IVP PRN (20:20)
[2024-11-22 20:36] LABS: Glucose,Whole Blood 274 mg/dL (70-110)
[2024-11-22] MEDS: METOPROLOL TARTRATE 50 MG TAB PO SCH (20:55)
[2024-11-22] MEDS: ATORVASTATIN 20 MG TAB PO SCH (20:55)
[2024-11-22] MEDS: SENNOSIDES-DOCUSATE SODIUM 1 EACH TAB PO SCH (20:56)
[2024-11-22] MEDS: ASPIRIN 325 MG TAB PO SCH (20:57)
[2024-11-22] MEDS: INSULIN LISPRO (HumaLOG) 100 UNIT/ML 10 mL VL SQ SCH (20:57)
[2024-11-22] MEDS: ACETAMINOPHEN TAB 325 MG TAB PO PRN (23:14)
[2024-11-23 01:53] VITALS: RESP 18
[2024-11-23 06:10] LABS: Glucose,Whole Blood 224 mg/dL (70-110)
[2024-11-23 08:19] VITALS: BP 145/75; PULSE 67; TEMP 98.3
[2024-11-23 08:24] LABS: HGB 13.3 g/dL (13.0-17.0); MCH 29.6 pg (27.0-32.0); MCHC 32.4 g/dL (32.0-37.0); MCV 91.3 FL (80.0-97.0); Mean Platelet Volume 11.9 FL (9.5-12.2); NRBC Per 100 WBC 0 X 10*3/uL (0.00-0.01); Platelet Count 217 X 10*3/uL (140-440); RBC 4.49 X 10*6/uL (4.40-5.60); RDW 14.2 % (11.5-14.5); WBC 12.75 X 10*3/uL (4.50-10.00)
--- NOTE | 2024-11-23 08:48 | P.DS ---
Providers Expected date of discharge: 11/23/24 Attending physician: Armani Paz Consults: 11/22/24 09:44 Consult Physician Routine Consulting Provider: Layla Gale Consult Reason/Comments: medical management Do you want consulting provider notified?: Yes Primary care physician: Jl Olson MD - Discharge Diagnosis(es) (1) Osteoarthritis of right hip Current Visit: Yes Status: Acute (2) S/P total right hip arthroplasty Current Visit: Yes Status: Acute Hospital Course: This is a 69-year-old male with known history of degenerative arthritis of the right hip. The patient presents for evaluation. After discussion and consideration patient elects to proceed with total hip arthroplasty. The patient is seen preoperatively by his primary care physician and cleared for surgery. Patient is admitted to [facility] on 11/22/2024 for a right total hip arthroplasty. The procedures performed without complication or sequelae. The patient is doing well postoperatively. Labs and vital signs are stable on day of discharge. On day of discharge patient's hip incision is healing well. There is minimal erythema. There is no drainage noted at this time. There is minimal soft tissue swelling to the hip and thigh. Patient has full foot and ankle motion without difficulty or pain. Neurovascular status to the right lower extremity is intact. Patient is discharged to home in good condition. Pertinent Studies: Laboratory Tests 11/23/24 11/23/24 04:01 06:06 WBC 12.75 H RBC 4.49 Hgb 13.3 Hct 41.0 POC Glucose (mg/dL) 224 H Patient Condition at Discharge: Stable Plan - Discharge Summary Discharge Rx Participant: Yes New Discharge Prescriptions: New Aspirin 325 mg PO BID #60 tab Acetaminophen Tab [Tylenol Tab] 500 mg PO Q6H PRN #30 tablet PRN Reason: Pain No Action metFORMIN HCL [Glucophage] 500 mg PO BID Fish Oil/Dha/Epa [Fish Oil 1,200 mg Fish Oil] 1 each PO DAILY Turmeric Root Extract [Turmeric] 500 mg PO DAILY Rosuvastatin [Crestor] 20 mg PO HS Metoprolol Tartrate [Lopressor] 50 mg PO BID lisinopriL [Prinivil] 20 mg PO QAM Aspirin 81 mg PO DAILY Cyanocobalamin [Vitamin B-12] 500 mcg PO DAILY Pyridoxine HCl (Vitamin B6) [Vitamin B-6] 100 mg PO DAILY Discharge Medication List Fish Oil/Dha/Epa [Fish Oil 1,200 mg Fish Oil] 1 each PO DAILY 11/15/21 [History] Metoprolol Tartrate [Lopressor] 50 mg PO BID 11/15/21 [History] Rosuvastatin [Crestor] 20 mg PO HS 11/15/21 [History] lisinopriL [Prinivil] 20 mg PO QAM 11/15/21 [History] metFORMIN HCL [Glucophage] 500 mg PO BID 11/15/21 [History] Aspirin 81 mg PO DAILY 11/16/24 [History] Cyanocobalamin [Vitamin B-12] 500 mcg PO DAILY 11/16/24 [History] Pyridoxine HCl (Vitamin B6) [Vitamin B-6] 100 mg PO DAILY 11/16/24 [History] Turmeric Root Extract [Turmeric] 500 mg PO DAILY 11/16/24 [History] Acetaminophen Tab [Tylenol Tab] 500 mg PO Q6H PRN #30 tablet 11/23/24 [Rx] Aspirin 325 mg PO BID #60 tab 11/23/24 [Rx] Follow up Appointment(s)/Referral(s): Armani Paz DO [Doctor of Osteopathic Medicine] - 2 Weeks Activity/Diet/Wound Care/Special Instructions: Weightbearing as tolerated with walker Keep dressing in place for 10 days unless saturated Aspirin 325 mg twice a day May shower over dressing Follow up with Dr. Armani Paz in 2 weeks. [facility] with questions or concerns, Discharge Disposition: HOME WITH HOME HEALTH SERVICES
[2024-11-23 09:30] LABS: Basophils # (A) 0.02 X 10*3/uL (0.00-0.10); Basophils % (A) 0.2 %; Eosinophils # (A) 0 X 10*3/uL (0.04-0.35); Eosinophils % (A) 0 %; Lymphocytes # (A) 1.15 X 10*3/uL (0.90-5.00); Monocytes % (A) 14.9 %; Neutrophils # (A) 9.63 X 10*3/uL (1.80-7.70); Neutrophils % (A) 75.5 %
[2024-11-23 10:21] LABS: Glucose,Whole Blood 328 mg/dL (70-110)
--- NOTE | 2024-11-24 22:27 | P.CONS ---
History of Present Illness - Reason for Consult Consult date: 11/23/24 - History of Present Illness This is a pleasant 69 year old male who is admitted for an elective right total knee. Past medical history of coronary artery disease with prior CABG in 2010, diabetes mellitus, hypertension, hyperlipidemia, never smoker. He is evaluated today postoperative day #1, doing well. Pain has been controlled. He is passing gas. White blood cell count 12.75 post surgical. He is using his incentive s pirometer. He worked with physical therapy today and was cleared for DC home. Patient has been afebrile, oxygen saturations 98% while on room air. REVIEW OF SYSTEMS: CONSTITUTIONAL: No fever, no malaise, no fatigue. HEENT: No recent visual problems or hearing problems. Denied any sore throat. CARDIOVASCULAR: No chest pain, orthopnea, PND, no palpitations, no syncope. PULMONARY: No shortness of breath, no cough, no hemoptysis. GASTROINTESTINAL: No diarrhea, no nausea, no vomiting, no abdominal pain. NEUROLOGICAL: No headaches, no weakness, no numbness. HEMATOLOGICAL: Denies any bleeding or petechiae. GENITOURINARY: Denies any burning micturition, frequency, or urgency. MUSCULOSKELETAL/RHEUMATOLOGICAL: Denies any joint pain, swelling, or any muscle pain. ENDOCRINE: Denies any polyuria or polydipsia. The rest of the 14-point review of systems is negative. PHYSICAL EXAMINATION: GENERAL: The patient is alert and oriented x3, not in any acute distress. Well developed, well nourished. HEENT: Pupils are round and equally reacting to light. EOMI. No scleral icterus. No conjunctival pallor. Normocephalic, atraumatic. No pharyngeal erythema. No thyromegaly. CARDIOVASCULAR: S1 and S2 present. No murmurs, rubs, or gallops. PULMONARY: Chest is clear to auscultation, no wheezing or crackles. ABDOMEN: Soft, nontender, nondistended, normoactive bowel sounds. No palpable organomegaly. MUSCULOSKELETAL: No joint swelling or deformity. EXTREMITIES: No cyanosis, clubbing, or pedal edema. NEUROLOGICAL: Gross neurological examination did not reveal any focal deficits. SKIN: No rashes. Assessment and Plan Osteoarthritis postoperative right total knee arthroplasty Coronary artery disease with prior CABG Hypertension Hyperlipidemia GI prophylaxis Plan continue home medications continue aspirin 81 mg twice daily per orthopedics Patient medically is stable for DC home. The impression and plan of care has been dictated by Laura Turner, Nurse Practitioner as directed. Dr. Rachel MD I have performed a history and physical examination and medical decision making of this patient, discussed the same with the dictator, and agree with the dictators assessment and plan as written, documented as a scribe. Based on total visit time, I have performed more than 50% of this visit. Past Medical History Past Medical History: Coronary Artery Disease (CAD), Cancer, Diabetes Mellitus, Hyperlipidemia, Hypertension, Osteoarthritis (OA) Additional Past Medical History / Comment(s): past hx. gout, skin cancer History of Any Multi-Drug Resistant Organisms: None Reported Past Surgical History: Coronary Bypass/CABG, Heart Catheterization, Joint Replacement, Orthopedic Surgery Additional Past Surgical History / Comment(s): arthroscopy rt knee, reattached tendons rt thrumb, double CABG 2010, Left anterior hip (11/19/21), chavez. CTS-twice right side, once left side, total right hip Past Anesthesia/Blood Transfusion Reactions: Previous Problems w/ Anesthesia Additional Past Anesthesia/Blood Transfusion Reaction / Comm: "takes a while to come out", "takes more to put me out" Smoking Status: Never smoker - Past Family History Mother Family Medical History: No Reported History Medications and Allergies Home Medications Medication Instructions Recorded Confirmed Type Fish Oil/Dha/Epa [Fish Oil 1,200 1 each PO DAILY 11/15/21 11/22/24 History mg Fish Oil] Metoprolol Tartrate [Lopressor] 50 mg PO BID 11/15/21 11/22/24 History Rosuvastatin [Crestor] 20 mg PO HS 11/15/21 11/22/24 History lisinopriL [Prinivil] 20 mg PO QAM 11/15/21 11/22/24 History metFORMIN HCL [Glucophage] 500 mg PO BID 11/15/21 11/22/24 History Aspirin 81 mg PO DAILY 11/16/24 11/22/24 History Cyanocobalamin [Vitamin B-12] 500 mcg PO DAILY 11/16/24 11/22/24 History Pyridoxine HCl (Vitamin B6) 100 mg PO DAILY 11/16/24 11/22/24 History [Vitamin B-6] Turmeric Root Extract [Turmeric] 500 mg PO DAILY 11/16/24 11/22/24 History Acetaminophen Tab [Tylenol Tab] 500 mg PO Q6H PRN #30 tablet 11/23/24 Rx Aspirin 325 mg PO BID #60 tab 11/23/24 Rx Allergies Allergy/AdvReac Type Severity Reaction Status Date / Time ibuprofen Allergy Rash/Hives Verified 11/22/24 06:10 Results CBC & Chem 7: 11/23/24 04:01 Assessment and Plan Time with Patient: Less than 30
== END 2024-11-23 10:36 | disposition home health service (06) ==
LOC: OR 05:47 → 4SSUR 12:11 → OR 11-23 10:36
PROVIDERS: ATTEND Orthopaedic Surgery
DX: M16.11 Unilateral primary osteoarthritis, right hip (principal); I25.10 Atherosclerotic heart disease of native coronary artery without angina pectoris; I10 Essential (primary) hypertension; E78.2 Mixed hyperlipidemia; Z95.1 Presence of aortocoronary bypass graft; Z96.641 Presence of right artificial hip joint; Z79.84 Long term (current) use of oral hypoglycemic drugs; Z79.82 Long term (current) use of aspirin; Z79.899 Other long term (current) drug therapy
CPT/HCPCS: 73501; 64473; 27130; J2250; J0360; J1100; J0690 ×2; J2405; J2795; J1171; 85025

== ENCOUNTER 2024-12-31 12:08 | Emergency (ER) | payer MEDICARE ==
[2024-12-31 12:26] VITALS: TEMP 98.4
--- NOTE | 2024-12-31 12:51 | ED ---
Extremity Problem HPI - General Chief complaint: Extremity Injury, Lower Stated complaint: L Toe Infetion Time Seen by Provider: 12/31/24 12:29 Source: patient, family, RN notes reviewed Mode of arrival: ambulatory Limitations: no limitations - History of Present Illness Initial comments: This is a 69-year-old male who presents to the emergency department for a left middle toe infection. States that he noticed the redness and swelling 3 days ago. He initially thought it was gout. However, he went to urgent care today and they were concerned about infection and an abscess and sent him here for evaluation and possible drainage. Patient denies any fevers or chills. Denies any difficulty ambulating. - Related Data Home Medications Medication Instructions Recorded Confirmed Fish Oil/Dha/Epa [Fish Oil 1,200 1 each PO DAILY 11/15/21 11/22/24 mg Fish Oil] Metoprolol Tartrate [Lopressor] 50 mg PO BID 11/15/21 11/22/24 Rosuvastatin [Crestor] 20 mg PO HS 11/15/21 11/22/24 lisinopriL [Prinivil] 20 mg PO QAM 11/15/21 11/22/24 metFORMIN HCL [Glucophage] 500 mg PO BID 11/15/21 11/22/24 Aspirin 81 mg PO DAILY 11/16/24 11/22/24 Cyanocobalamin [Vitamin B-12] 500 mcg PO DAILY 11/16/24 11/22/24 Pyridoxine HCl (Vitamin B6) 100 mg PO DAILY 11/16/24 11/22/24 [Vitamin B-6] Turmeric Root Extract [Turmeric] 500 mg PO DAILY 11/16/24 11/22/24 Previous Rx's Medication Instructions Recorded Acetaminophen Tab [Tylenol Tab] 500 mg PO Q6H PRN #30 tablet 11/23/24 Aspirin 325 mg PO BID #60 tab 11/23/24 Cephalexin [Keflex] 500 mg PO Q6HR 10 Days #40 cap 12/31/24 Sulfamethox-Tmp 800-160Mg [Bactrim 1 tab PO Q12HR 10 Days #20 tab 12/31/24 DS 800-160 mg] Allergies Allergy/AdvReac Type Severity Reaction Status Date / Time ibuprofen Allergy Rash/Hives Verified 11/22/24 06:10 Review of Systems ROS Statement: Those systems with pertinent positive or pertinent negative responses have been documented in the HPI. ROS Other: All systems not noted in ROS Statement are negative. Past Medical History Past Medical History: Coronary Artery Disease (CAD), Diabetes Mellitus, Hyperlipidemia, Hypertension Past Surgical History: Coronary Bypass/CABG, Joint Replacement Additional Past Surgical History / Comment(s): arthroscopy rt knee, reattached tendons rt thrumb, double CABG 2010, Left anterior hip (11/19/21), chavez. CTS-twice right side, once left side, total right hip Smoking Status: Never smoker General Exam Limitations: no limitations General appearance: alert, in no apparent distress Head exam: Present: atraumatic, normocephalic, normal inspection Respiratory exam: Present: normal lung sounds bilaterally. Absent: respiratory distress, wheezes, rales, rhonchi, stridor Cardiovascular Exam: Present: regular rate, normal rhythm Extremities exam: Present: other (Swelling and erythema to the left middle toe with visible purulence underneath the skin) Neurological exam: Present: alert, oriented X3, CN II-XII intact Psychiatric exam: Present: normal affect, normal mood Course Vital Signs 12/31/24 12/31/24 12:24 14:14 Temperature 98.4 F Pulse Rate 70 72 Respiratory 20 16 Rate Blood Pressure 153/76 154/74 O2 Sat by Pulse 99 99 Oximetry Procedures - Incision & Drainage Consent Obtained: verbal consent Indication: Abscess Site: other (Left middle toe) Size (cm): 1 Sterile Field Used?: Yes I&D Drainage Obtained: Pus, Blood Medical Decision Making - Medical Decision Making This is a 69-year-old male who presents to the emergency department for concerns of an infection to the left middle toe. Was pt. sent in by a medical professional or institution? @ -Urgent care Did you speak to anyone other than the patient for history? @ -No Did you review nursing and triage notes? @ -Yes, and I agree, it is accurate with regards to the patient's symptoms. Were old charts reviewed? @ -No Differential Diagnosis? @ -Abscess, cellulitis, bite, burn, this is not meant to be an all-inclusive list. EKG interpreted by me (3pts min.)? @ -Not obtained X-rays interpreted by me (1pt min.)? @ -X-ray of the left middle toe obtained. My interpretation identifies no evidence of osteomyelitis. CT interpreted by me (1pt min.)? @ -Not obtained U/S interpreted by me (1pt. min.)? @ -Not obtained What testing was considered but not performed? (CT, X-rays, U/S, labs)? Why? @ -None What meds were considered but not given? Why? @ -None Did you discuss the management of the patient with other professionals? @ -No Did you reconcile home meds? @ -No Was smoking cessation discussed for >3mins.? @ -No Was critical care preformed (if so, how long)? @ -No Were there social determinants of health that impacted care today? How? (Homelessness, low income, unemployed, alcoholism, drug addiction, transportation, low edu. Level, literacy, decrease access to med. care, halfway, rehab)? @ -No Was there de-escalation of care discussed even if they declined? (Discuss DNR or withdrawal of care, Hospice)? @ -No What co-morbidities impacted this encounter? (DM, HTN, Smoking, COPD, CAD, Cancer, CVA, Hep., AIDS, mental health diagnosis, sleep apnea, morbid obesity)? @ -DM Was patient admitted / discharged? @ -Discharged. Lab work demonstrates a mildly elevated CRP of 4.6 and is otherwise unremarkable. X-ray of the left middle toe reveals soft tissue swelling without signs of osteomyelitis or other acute process. There was a visible area of purulence under the skin and this was poked with a 27-gauge needle. Purulence was expressed. The infection at this point is fairly minor and largely localized to the toe. Advised that he can start with outpatient management first. He was given 1 g of ceftriaxone in the emergency department and the Bactrim and Keflex were prescribed. Advised follow-up with his PCP for reevaluation. Patient discharged home in stable condition. Case discussed with ED attending Dr. Elam. Return precautions reviewed in depth, the patient is instructed to return to the emergency department with any new, worsening, or concerning symptoms. Patient verbalized understanding. Undiagnosed new problem with uncertain prognosis? @ -None Drug Therapy requiring intensive monitoring for toxicity (Heparin, Nitro, Insulin, Cardizem)? @ -None Were any procedures done? @ -Incision and drainage Diagnosis/symptom? @ -Cellulitis, abscess Acute, or Chronic, or Acute on Chronic? @ -Acute Uncomplicated (without systemic symptoms) or Complicated (systemic symptoms)? @ -Uncomplicated Side effects of treatment? @ -None Exacerbation, Progression, or Severe Exacerbation] @ -Not applicable Poses a threat to life or bodily function? @ -No - Lab Data Result diagrams: 12/31/24 12:45 12/31/24 12:45 Lab Results 12/31/24 12/31/24 12/31/24 Range/Units 12:45 12:45 12:45 WBC 9.44 (4.50-10.00) 10*3/uL RBC 3.98 L (4.40-5.60) 10*6/uL Hgb 11.4 L (13.0-17.0) g/dL Hct 34.2 L (39.6-50.0) % MCV 85.9 (80.0-97.0) fL MCH 28.6 (27.0-32.0) pg MCHC 33.3 (32.0-37.0) g/dL Plt Count 231 (140-440) 10*3/uL MPV 10.5 (9.5-12.2) fL Immature Gran % (Auto) 0.2 % Neutrophils % 76.0 % Lymphocytes % 12.5 % Monocytes % 10.5 % Eosinophils % 0.3 % Basophils % 0.5 % Immature Gran # 0.02 (0.00-0.04) 10*3/uL Neutrophils # 7.17 (1.80-7.70) 10*3/uL Lymphocytes # 1.18 (0.90-5.00) 10*3/uL Monocytes # 0.99 (0.20-1.00) 10*3/uL Eosinophils # 0.03 L (0.04-0.35) 10*3/uL Basophils # 0.05 (0.00-0.10) 10*3/uL Sodium 136 L (137-145) mmol/L Potassium 4.3 (3.5-5.1) mmol/L Chloride 104 (98-107) mmol/L Carbon Dioxide 24 (22-30) mmol/L Anion Gap 8 mmol/L BUN 20 (9-20) mg/dL Creatinine 1.05 (0.66-1.25) mg/dL Est GFR (CKD-EPI)AfAm 84 (>60 ml/min/1.73 sqM) Est GFR (CKD-EPI)NonAf 73 (>60 ml/min/1.73 sqM) Glucose 263 H (74-99) mg/dL Plasma Lactic Acid Paul 1.4 (0.7-2.0) mmol/L Uric Acid 7.7 (3.5-8.5) mg/dL Calcium 9.3 (8.4-10.2) mg/dL Total Bilirubin 0.7 (0.2-1.3) mg/dL AST 20 (17-59) U/L ALT 17 (4-49) U/L Alkaline Phosphatase 76 (38-126) U/L C-Reactive Protein 4.6 H (<1.0) mg/dL Total Protein 6.6 (6.3-8.2) g/dL Albumin 3.7 (3.5-5.0) g/dL - Radiology Data Radiology results: report reviewed, image reviewed Disposition Clinical Impression: Toe infection, Cellulitis, toe, Abscess, toe Disposition: HOME SELF-CARE Instructions (If sedation given, give patient instructions): Cellulitis (ED) Additional Instructions: Return to the emergency department with any new, worsening, or concerning symptoms. Take both antibiotics as prescribed for 10 days. Follow up with your primary care provider in 1-2 days. Prescriptions: Sulfamethox-Tmp 800-160Mg [Bactrim DS 800-160 mg] 1 tab PO Q12HR 10 Days #20 tab Cephalexin [Keflex] 500 mg PO Q6HR 10 Days #40 cap Is patient prescribed a controlled substance at d/c from ED?: No Referrals: None,Stated [REFERRING] - 1-2 days Time of Disposition: 13:55
[2024-12-31 12:52] LABS: Basophils # (A) 0.05 10*3/uL (0.00-0.10); Basophils % (A) 0.5 %; Eosinophils # (A) 0.03 10*3/uL (0.04-0.35); Eosinophils % (A) 0.3 %; HCT 34.2 % (39.6-50.0); HGB 11.4 g/dL (13.0-17.0); Lymphocytes # (A) 1.18 10*3/uL (0.90-5.00); Lymphocytes % (A) 12.5 %; MCH 28.6 pg (27.0-32.0); MCHC 33.3 g/dL (32.0-37.0); MCV 85.9 fL (80.0-97.0); Mean Platelet Volume 10.5 fL (9.5-12.2); Monocytes # (A) 0.99 10*3/uL (0.20-1.00); Monocytes % (A) 10.5 %; Neutrophils # (A) 7.17 10*3/uL (1.80-7.70); Platelet Count 231 10*3/uL (140-440); RBC 3.98 10*6/uL (4.40-5.60); RDW 13.5 % (11.5-14.5); WBC 9.44 10*3/uL (4.50-10.00)
[2024-12-31 13:10] LABS: C Reactive Protein 4.6 mg/dL (<1.0)
[2024-12-31 13:23] LABS: ALT 17 U/L (4-49); AST 20 U/L (17-59); African American GFR (CKD) 84 (>60 ml/min/1.73 sqM); Albumin 3.7 g/dL (3.5-5.0); Alkaline Phosphatase 76 U/L (38-126); Anion Gap 8 mmol/L; Blood Urea Nitrogen 20 mg/dL (9-20); Calcium 9.3 mg/dL (8.4-10.2); Carbon Dioxide 24 mmol/L (22-30); Chloride 104 mmol/L (98-107); Glucose 263 mg/dL (74-99); Non-African American GFR(CKD) 73 (>60 ml/min/1.73 sqM); Potassium 4.3 mmol/L (3.5-5.1); Sodium 136 mmol/L (137-145); Total Bilirubin 0.7 mg/dL (0.2-1.3); Total Protein 6.6 g/dL (6.3-8.2); Uric Acid 7.7 mg/dL (3.5-8.5)
--- NOTE | 2024-12-31 13:34 | XR ---
EXAMINATION TYPE: XR toes LT DATE OF EXAM: 12/31/2024 1:14 PM COMPARISON: None. CLINICAL INDICATION: Male, 69 years old with history of Left middle toe infection, pain TECHNIQUE: 3 view(s) obtained. FINDINGS: Left digits are examined in 4 projections. Soft tissue swelling over the distal second digit. Osseous structures appear intact. No acute fractures evident there may be some degenerative change at the di stal interphalangeal joint space second digit. No suspicious cortical erosions are identified. Follow up exams can be performed as clinically indicated. Three-phase bone scan can be performed for sufficient clinical suspicion of osteomyelitis. IMPRESSION: 1. No suspicious cortical erosion to suggest osteomyelitis radiographically apparent. 2. Soft tissue swelling of the second digit [facility], , 12/31/2024 1:32 PM
[2024-12-31] MEDS: cefTRIAXone 1,000 MG VIAL (IM USE) IM STA (14:05)
[2024-12-31 14:15] VITALS: BP 154/74; PULSE 72; RESP 16
== END 2024-12-31 14:15 | disposition home or self-care (01) ==
LOC: EC 12:08
DX: L03.032 Cellulitis of left toe (principal); L02.612 Cutaneous abscess of left foot; E11.9 Type 2 diabetes mellitus without complications; Z88.6 Allergy status to analgesic agent
CPT/HCPCS: 36415; 80053; 83605; 84550; 85025; 86140; 73660; 10060; 99283; 96372; J0696